=== PATIENT | male | born 1950 | race Caucasian/White ===

== ENCOUNTER → 2017-12-01 11:58 | Outpatient (CLI) | payer MEDICARE, OTHER ==
[2015-01-13 06:13] VITALS: BMI 20.2
[~2017-12-01 11:58] MED LIST: ALBUTEROL0.63 MG/3 INH; BAYER CHEWABLE81 MG PO; FISH OIL 1,2001 CAP PO; LIPITOR10 MG PO; LISINOPRIL2.5 MG PO; LOPRESSOR25 MG PO; MUCINEX D1 TAB.SR . PO; MULTIPLE VITAMI1 TA1 PO; PLAVIX75 MG PO; PREDNISONE2.5 MG PO; PROAIR HFA8.5 GM INH; PROTONIX40 MG PO; SYMBICORT 16010.2 GM INH; ZANTAC300 MG PO
== END | disposition home or self-care (01) ==
LOC: D.CT 11:30
DX: H53.2 Diplopia (principal)

== ENCOUNTER → 2017-12-08 06:45 | Outpatient (CLI) | payer MEDICARE, OTHER ==
[2015-01-13 06:13] VITALS: BMI 20.2
== END | disposition home or self-care (01) ==
LOC: D.MRI 06:45
DX: H53.2 Diplopia (principal)

== ENCOUNTER → 2017-12-29 13:42 | Outpatient (CLI) | payer MEDICARE, OTHER ==
[2015-01-13 06:13] VITALS: BMI 20.2
== END | disposition home or self-care (01) ==
LOC: D.CT 13:42
DX: I63.312 Cerebral infarction due to thrombosis of left middle cerebral artery (principal)

== ENCOUNTER 2018-01-16 07:05 | Outpatient (CLI) | payer MEDICARE, OTHER ==
[~2018-01-16] VITALS: Ht 167.6 cm; Wt 56.4 kg
--- NOTE | ~2018-01-16 | HEMODYNAMI ---
PATIENT:ELAINE CARRILLO MEDICAL RECORD: [id number] : 46 LOCATION:[facility] ADMISSION DATE: 01/16/18 Generatedon:01/16/201810:22 Patient name: ELAINE CARRILLO Patient #: [id number] SSN: : 1950 Date of study: 01/16/2018 Page: Of Hemodynamic Procedure Report Patient Data Patient Demographics Procedure consent was obtained First Name: ELAINE Gender: Male Last Name: GERARDO : 1950 [facility] Initial: J Age: 67 year(s) Patient #: [id number] Race: Unknown Additional ID: [id number] Contact details [address]: [address] [place] [address] State: [place] City: [place] Zip code: [address] Past Medical History Allergies Allergen Reaction Date Comments Reported Codeine 01/16/2018 Natural rubber 01/16/2018 and latex Admission Admission Data Admission Date: 01/16/2018 Admission Time: 7:05 Procedure Procedure Types Cath Procedure Peripheral Cath Diagnostic Procedure Cath Peripheral Four Vessel Arteriogram Procedure Description Procedure Date Procedure Date: 01/16/2018 Procedure Start Time: 9:47 Procedure Staff Name Function Mukul Guillory MD Performing Physician Mary Craig RT Data Conversion Analyst Ana Zuleta RN Nurse Chiquis Anderson RN Nurse Merlin Shah RT Scrub Procedure Data Cath Procedure Fluoroscopy Diagnostic fluoroscopy Total fluoroscopy Time: 4.1 time: 4.1 min min Diagnostic fluoroscopy Total fluoroscopy dose: 443 dose: 443 mGy mGy Contrast Material Contrast Material Type Amount (ml) Isovue 300 90 Diagnostic catheters Device Type Used For End Catheter Placement Merit ULTRA BOLUS FLUSH 5Fr 90CM catheter ([id number]) Merit Impress Eid 5FR. 100CM catheter ([id number]) Procedure Medications Medication Administration Route Dosage Oxygen etCO2 Nasal cannula 4 l/min Heparin Flush Bag added to field 3 bags (1000units/500ml NS) Lidocaine 1% added to field 20 Fentanyl I.V. 50 mcg Versed I.V. 1 mg Hemodynamics Rest Heart Rate: 69 (bpm) Snapshots Pre Cath Intra NCS Post Cath Vital Signs Time Heart Resp SPO2 etCO2 NIBP (mmHg) Rhythm Pain Sedation Rate (ipm) (%) (mmHg) Status Level (bpm) 9:23:31 70 11 99 29.2 150/80(118) NSR 0 (11) 10(A) , No pain 9:27:53 66 30 98 22.5 145/72(111) NSR 0 (11) 10(A) , No pain 9:32:11 65 9 99 30 136/73(119) NSR 0 (11) 10(A) , No pain 9:36:23 64 9 99 22.5 138/79(116) NSR 0 (11) 9(A) , No pain 9:40:39 64 14 99 27.7 135/73(115) NSR 0 (11) 9(A) , No pain 9:44:53 66 6 99 29.2 146/75(105) NSR 0 (11) 9(A) , No pain 9:49:13 65 10 98 31.5 134/70(116) NSR 0 (11) 8(A) , No pain 9:53:29 61 4 96 28.5 107/68(87) NSR 0 (11) 8(A) , No pain 9:57:35 69 6 97 37.6 92/64(76) NSR 0 (11) 8(A) , No pain 10:02:34 64 1 97 39.1 97/59(81) NSR 0 (11) 8(A) , No pain 10:06:38 63 6 96 33 113/64(89) NSR 0 (11) 8(A) , No pain 10:10:48 61 9 95 34.5 108/62(86) NSR 0 (11) 8(A) , No pain 10:14:56 61 8 96 31.5 122/60(100) NSR 0 (11) 8(A) , No pain 10:19:07 68 19 97 29.2 123/67(87) NSR 0 (11) 8(A) , No pain Medications Time Medication Route Dose Verified Delivered Reason Notes Effect iveness by by 9:33:38 Oxygen etCO2 4 Mukul Rogers Nasal l/min Kahlil Zuleta RN protocol cannula 9:34:22 Heparin Flush added 3 Mukul Perez Per Bag to bags Kahlil Zuleta RN protocol (1000units/500ml field ARROYO NS) 9:34:36 Lidocaine 1% added 20ml Mukul Gilman Per to vial Kahlil tabor MD, MD 9:48:42 Fentanyl I.V. 50 Mukul Ana for Dozing mcg Kahlil Zuleta RN sedation intermittently MD @ 9:52:51 9:48:52 Versed I.V. 1 mg Mukul Perez for Dozing Kahlil Zuleta RN sedation intermittently MD @ 9:53:02 Procedure Log Time Note 8:16:03 Use device set IR Diagnostic 9:05:04 Time tracking: Regular hours (M-F 7:00 - 5:00) 9:05:21 Plan of Care:Hemodynamics will remain stable., Cardiac rhythm will remain stable., Comfort level will be maintained., Respiratory function will remain adequate., Patient/ family verbilizes understanding of procedure., Procedure tolerated without complication., Recovers from procedure without complications.. 9:05:31 Patient received from Outpatients to IR Alert and oriented. Tansferred to table in Supine position. 9:05:32 Correct patient and procedure confirmed by team. 9:05:34 Signed procedure consent form obtained from patient. 9:05:40 H&P Date Dictated: 01/16/2018 Within 30 days and on chart.. 9:05:43 Pre-procedure instructions explained to patient. 9:05:44 Pre-op teaching completed and patient verbalized understanding. 9:05:46 Family in waiting room. 9:05:48 Patient NPO since Midnight. 9:06:10 Patient allergic to Codeine, aggrenox, brilenta 9:06:24 Patient allergic to Natural rubber and latex 9:07:46 Is the patient allergic to Iodine/contrast media? No. 9:07:49 Is patient on blood thinner?Yes, last dose of plavix on 01/13/2018 9:09:03 Patient diabetic? No. 9:09:07 - ::08 ----Pre-sedation anethsthesia assessment.---- 9::12 Previous problem with sedation/anesthesia? No ? 9:09:16 Snore? Yes 9:09:19 Sleep apnea? Yes 9:09:21 Deviated septum? No 9:09:24 Opens mouth fully? Yes 9:09:27 Sticks out tongue? Yes 9::43 Airway obstruction? Yes copd,asthma 9::48 Dentures? No ? 9::51 - 9:10:02 IV patent on arrival in right wrist with D5/.45%NaCl at KVO. 9:10:31 Pre procedure: right dorsailis pedis pulse 1+ Palpable, but thready & weak; easily obliterated 9:10:39 Pre procedure: right posterior tibial pulse Doppler 9:22:25 Pre procedure: left dorsailis pedis pulse Doppler 9:22:27 Vital chart was started 9:22:32 Pre procedure: left posterior tibial pulse Doppler 9:22:40 - 9:22:43 ECG and BP/O2 sat monitors applied to patient. 9:22:44 Baseline sample Acquired. 9:22:46 Full Disclosure recording started 9::48 - 9:23:02 Baseline sample Acquired. 9:26:30 Right groin area was prepped with chlora-prep and draped in sterile fashion 9:26:35 Left groin area was prepped with chlora-prep and draped in sterile fashion 9:26:51 - 9:26:58 Tegaderm 4 x 4 ([id number]) opened to sterile field. 9:26:59 Sterile Angiographic Pack opened to sterile field. 9:27:00 Bag Decanter (2002S) opened to sterile field. 9:27:02 ACIST Manifold (35852) opened to sterile field. 9:27:03 ACIST Hand Control (78521) opened to sterile field. 9:27:04 ACIST Syringe (38134) opened to sterile field. 9:27:05 Micropuncture VSI 4FR kit opened to sterile field. 9:27:06 SHEATH 5FR [place] (OXV415) opened to sterile field. 9:27:07 TUBING Contrast Injection High Pressure ([id number]) opened to sterile field. 9:27:08 DOC .035 wire (S97560) opened to sterile field. 9:33:38 Oxygen 4 l/min etCO2 Nasal cannula was administered by Ana Zuleta RN; Per protocol; 9:34:22 Heparin Flush Bag (1000units/500ml NS) 3 bags added to field was administered by Ana Zuleta RN; Per protocol; 9:34:36 Lidocaine 1% 20ml vial added to field was administered by Mukul weber MD; Per protocol; 9:46:17 Physician arrived 9:46:25 --------ALL STOP TIME OUT------ 9:46:26 Final Timeout: patient, procedure, and site verified with staff and physician. All members of the team are in agreement. 9:47:16 Procedure started. 9:47:29 Local anesthetic to right femoral artery with Lidocaine 1% by Mukul Guillory MD.INITIAL ACCESS ONLY 9:48:42 Fentanyl 50 mcg I.V. was administered by Ana Song RN; for sedation; 9:48:52 Versed 1 mg I.V. was administered by Ana Zuleta RN; for sedation; 9:49:24 A [employer] ULTRA BOLUS FLUSH 5Fr 90CM catheter ([id number]) was advanced over the wire and used for . 9:51:17 Arterial access obtained using ultrasound guidance. 9:52:51 Effectiveness of Fentanyl delivered @ 9:48:42 is: Dozing intermittently 9:53:02 Effectiveness of Versed delivered @ 9:48:52 is: Dozing intermittently 9:59:36 A [employer] Impress Eid 5FR. 100CM catheter ([id number]) was advanced over the wire and used for . 10:17:06 Procedure ended.(Physican Out) 10:18:28 Fluoroscopy time 04.10 minutes. 10:18:34 Fluoroscopy dose: 443 mGy 10:18:34 Flurop Dose total: 443 10:18:39 Contrast amount:Isovue 300 90ml. 10:18:41 Procedure and supply charges have been captured, reviewed, submitted an d are correct. 10:22:07 Report given to Outpatients. 10:22:34 Vital chart was stopped Device Usage Item Name Manufacture Quantity Catalog Number Hospital Part Current [facility] Lot# / Charge Number Stock Stock Serial# Code Tegaderm 4 x 4 3M 1 [id number] [id number] 5 (1626W) Sterile Cardinal 1 [id number] 726211 101715 5 Angiographic Health Pack Bag Decanter Microtek 1 2001S [id number] 85558 856665 5 () [employer] Inc. ACIST Manifold Acist 1 05636 956458 784672 599802 5 (49892) [employer] Systems Inc ACIST Hand Acist 1 55645 379490 105136 687569 5 Control Medical (13695) Systems Inc ACIST Syringe Acist 1 86789 239329 255703 353735 20 (95719) [employer] Systems [employer] Micropuncture VSI VASCULAR 1 7266V 016616 329243 5 VSI 4FR kit SOLUTIONS SHEATH 5FR Terumo 1 [id number] 917279 631619 048841 40 [place] (WNT462) TUBING Merit 1 [id number] 295257 727118 399711 5 Contrast Medical Injection High Pressure (SAV339W) DOC .035 wire [employer] 1 L32116 875243 024380 5 ([id number]) Merit ULTRA Merit 1 [id number] 659671 284681 5 BOLUS FLUSH Medical 5Fr 90CM catheter ([id number]) Merit Impress Merit 1 [id number] 797792 269071 5 Eid 5FR. Medical 100CM catheter ([id number]) Signature Audit [place] Stage Time Signature Unsigned Intra-Procedure 01/16/2018 Mary Craig 10:22:31 AM RT(R) [address] [id number] [place] [address]
[2018-01-16 07:26] LABS: BASOPHILS 0.5 % (0-2); EOSINOPHILS 3.3 % (0-7); HEMATOCRIT 43.3 % (42.0-54.0); HEMOGLOBIN 14.9 g/dL (13.5-17.5); IMMATURE GRANULOCYTES 0.2 % (0-5); LYMPHOCYTES 27.4 % (15-50); MCH 34.9 pg (26.0-34.0); MCHC 34.4 g/dL (31.0-37.0); MCV 101.4 fL (80.0-100.0); MEAN PLATELET VOLUME 10.2 fL (7.4-10.4); MONOCYTES 10.5 % (2-11); NEUTROPHILS 58.1 % (40-80); RBC 4.27 10x6/uL (4.20-6.10); RDW 14.2 % (11.5-14.5); WBC 8.4 10x3/uL (4.8-10.8)
[2018-01-16 07:48] LABS: APTT 26.4 SECONDS (22.8-39.4)
[2018-01-16 07:49] LABS: INR 0.97 (0.85-1.17); PROTIME 12.5 SECONDS (11.6-15.0)
[2018-01-16 07:55] LABS: PLATELET COUNT 161 10x3/uL (130-400)
[2018-01-16 08:03] LABS: ANION GAP 10.4 mmol/L (8-16); CALCIUM 8.5 mg/dL (8.5-10.1); CREATININE - SERUM 1.2 mg/dL (0.6-1.3); POTASSIUM - SERUM 4.4 mmol/L (3.5-5.1)
[2018-01-16 08:39] VITALS: BP 123/71; Ht 167.6 cm; Wt 56.4 kg
== END 2018-01-16 14:45 | disposition home or self-care (01) ==
LOC: D.SP 07:05 → D.RAD 09:00 → D.SP 09:00
PROVIDERS: Radiology Diagnostic Radiology
DX: Q00-Q99 Congenital malformations, deformations and chromosomal abnormalities (principal); Z86.73 Personal history of transient ischemic attack (TIA), and cerebral infarction without residual deficits; Z01.812 Encounter for preprocedural laboratory examination

== ENCOUNTER → 2019-02-19 13:41 | Outpatient (CLI) | payer MEDICARE, BC | END | disposition home or self-care (01) | LOC: D.CT 01-27 13:00 → D.RT 01-27 13:00 → D.CT 01-27 14:00 → D.RT 13:41 | PROVIDERS: ATTEND Internal Medicine Pulmonary Disease | DX: J44.9 Chronic obstructive pulmonary disease, unspecified (principal) ==

== ENCOUNTER 2020-10-06 14:05 | Emergency (ER) | payer MEDICARE, BC ==
[~2020-10-06] VITALS: Ht 167.6 cm; Wt 53.6 kg
[~2020-10-06 14:05] MED LIST changes: +COZAAR25 MG PO; +MUCINEX600 MG PO; +TUMS X-STR300 MG PO
[2020-10-06 14:11] VITALS: Ht 167.6 cm; Wt 53.6 kg
[2020-10-06 14:32] LABS: BASOPHILS 1.1 % (0-2); EOSINOPHILS 2.5 % (0-7); HEMATOCRIT 44.3 % (42.0-54.0); HEMOGLOBIN 14.6 g/dL (13.5-17.5); IMMATURE GRANULOCYTES 0.1 % (0-5); LYMPHOCYTE ABS# 2.12 10x3/uL (1.32-3.57); LYMPHOCYTES 26.8 % (15-50); MCH 33.7 pg (26.0-34.0); MCV 102.3 fL (80.0-100.0); MONOCYTES 8.6 % (2-11); NEUTROPHIL ABS# 4.82 10x3/uL (1.78-5.38); NEUTROPHILS 60.9 % (40-80); PLATELET COUNT 186 10x3/uL (130-400); RBC 4.33 10x6/uL (4.20-6.10); RDW 14.1 % (11.5-14.5); WBC 7.9 10x3/uL (4.8-10.8)
[2020-10-06 14:39] LABS: CALC OSMOLALITY 285 mosm/kg (275-300); CALCIUM 8.6 mg/dL (8.5-10.1); CARBON DIOXIDE 26.1 mmol/L (21.0-32.0); CHLORIDE - SERUM 107 mmol/L (98-107); CREATININE - SERUM 1.3 mg/dL (0.6-1.3); GLUCOSE 88 mg/dL (74-106); POTASSIUM - SERUM 3.6 mmol/L (3.5-5.1); SODIUM 142 mmol/L (136-145); UREA NITROGEN 23 mg/dL (7-18); eGFR NON AFRICAN AMERICAN 58 mL/min (90-120)
[2020-10-06 14:41] LABS: APTT 27.2 SECONDS (22.8-39.4); INR 1.05 (0.85-1.17); PROTIME 12.7 SECONDS (11.6-15.0)
[2020-10-06 15:08] LABS: ALBUMIN 3.3 g/dL (3.4-5.0); ALKALINE PHOSPHATASE 98 U/L (30-120); ALT (SGPT) 23 U/L (10-68); CKMB 41.2 U/L (0.0-3.6); CREATINE KINASE 75 UL (21-232); MAGNESIUM - SERUM 2.2 mg/dL (1.8-2.4); PROTEIN - SERUM 6.7 g/dL (6.4-8.2); THYROID STIMULATING HORMONE 1.17 uIU/mL (0.36-3.74)
[2020-10-06 15:12] LABS: TROPONIN-I < 0.017 ng/mL (0.000-0.060)
[2020-10-06 15:44] VITALS: BP 139/76
== END 2020-10-06 16:27 | disposition home or self-care (01) ==
LOC: D.ER 14:05
PROVIDERS: Student in an Organized Health Care Education/Training Program
DX: G45.9 Transient cerebral ischemic attack, unspecified (principal); R47.81 Slurred speech; Z86.73 Personal history of transient ischemic attack (TIA), and cerebral infarction without residual deficits; I10 Essential (primary) hypertension; J44.9 Chronic obstructive pulmonary disease, unspecified; K21.9 Gastro-esophageal reflux disease without esophagitis; G62.9 Polyneuropathy, unspecified; Z72.0 Tobacco use